=== PATIENT | female | born 1955 | race Caucasian/White ===

== ENCOUNTER 2017-08-27 15:42 | Emergency (ER) | payer MEDICARE, OTHER ==
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
[2017-08-27 16:49] LABS: Hematocrit 48.9 % (37.0-47.0); Hemoglobin 16.2 gm/dL (12.5-16.0); Mean Corpuscular Hemoglobin 32.1 pg (27-31); Mean Corpuscular Hgb Conc 33.1 g/dl (32-36); Mean Platelet Volume 8.9 fl (6.0-9.5); Neutrophil % 65.8 % (42-75.0); Platelet Count 191 K/mm3 (150-450); Red Blood Count 5.04 M/mm3 (4.2-5.4); Red Cell Distribution Width 14.5 % (11.5-14.0); White Blood Count 7.7 K/mm3 (4.0-10.5)
[2017-08-27 17:04] LABS: Albumin * 3.2 gm/dl (3.4-5.0); Anion Gap 11.7 mmol/L (6.8-13.8); BUN/Creatinine Ratio 19.3 (9.0-21.6); Bilirubin, Total 0.2 mg/dL (0.0-1.1); Ca. Corrected For Albumin 8.7 mg/dL (8.4-10.2); Calcium * 8.4 mg/dL (7.9-10.9); Carbon Dioxide 27.6 mmol/L (24-32.6); Potassium 3.3 mmol/L (3.4-4.6); Total Protein 7.3 gm/dL (6.2-8.2)
[2017-08-27 17:23] LABS: Urine Bilirubin 1 mg/dl (NEGATIVE); Urine Blood 250 /ul (NEGATIVE); Urine Ketone 5 mg/dL (NEGATIVE); Urine Nitrite Negative (NEGATIVE); Urine Protein 30 mg/dL (NEGATIVE); Urine Specific Gravity 1.025 SP.GR. (1.005-1.010); Urine Urobilinogen Normal (NORMAL)
[2017-08-27 17:36] LABS: Urine Appearance Cloudy; Urine Bacteria 1+; Urine Color Yellow; Urine WBC 0-5 /hpf (0-5)
[2017-08-27] MEDS ORDERED: CEFUROXIME AXETIL 500 MG TABLET PO ONE (18:32)
[2017-08-27] MEDS ORDERED: CEFUROXIME AXETIL 500 MG TABLET ONE (18:36)
[2017-08-27 19:56] VITALS: BP 153/71
== END 2017-08-27 20:15 ==
LOC: ER 15:42
DX: N30.00 Acute cystitis without hematuria (principal); E10.9 Type 1 diabetes mellitus without complications; Z79.4 Long term (current) use of insulin; Z87.440 Personal history of urinary (tract) infections; Z86.711 Personal history of pulmonary embolism; Z79.01 Long term (current) use of anticoagulants; I10 Essential (primary) hypertension; E78.5 Hyperlipidemia, unspecified; R56.9 Unspecified convulsions

== ENCOUNTER 2017-08-29 10:22 | Emergency (ER) | payer MEDICARE, OTHER ==
--- NOTE | 2017-08-29 11:07 | ERNOTE ---
ER Female HPI Date of Service: 08/29/17 Stated Complaint: BLEEDING Presenting Symptoms: vaginal bleeding Time Seen by Provider: 08/29/17 10:51 Source: patient Exam Limitations: no limitations Immunizations: IMMUNIZATION HX Immunizations Up to Date Yes History of Influenza Vaccine Yes Hx Pneumococcal Vaccination Yes Allergies/Adverse Reactions: Allergies No Known Allergies Allergy (Verified 08/29/17 10:41) Home Medications: HOME MEDICATIONS Atorvastatin Calcium [Lipitor] 40 mg PO HS 07/28/14 [Last Taken Unknown] Cyanocobalamin (Vitamin B-12) [B-12] 1,000 mcg PO DAILY 07/28/14 [Last Taken Unknown] Escitalopram Oxalate [Lexapro] 20 mg PO DAILY 07/28/14 [Last Taken Unknown] Furosemide [Lasix] 20 mg PO DAILY 07/28/14 [Last Taken Unknown] Insulin Glargine,Hum.rec.anlog [Lantus] 75 units SQ HS 07/28/14 [Last Taken Unknown] Insulin Regular, Human [Novolin R] 12 unit SC DAILY 07/28/14 [Last Taken Unknown ] Lisinopril [Zestril] 5 mg PO DAILY 07/28/14 [Last Taken Unknown] PHENobarbital [Phenobarbital] 32.4 mg PO DAILY 07/28/14 [Last Taken Unknown] PHENobarbital [Phenobarbital] 64.8 mg PO DAILY 07/28/14 [Last Taken Unknown] Phenytoin Sodium Extended [Dilantin] 100 mg PO BIDWM 07/28/14 [Last Taken Unknown] Sennosides [Senokot] 8.6 mg PO DAILY 07/28/14 [Last Taken Unknown] Warfarin Sodium [Coumadin] 3 mg PO DAILY 07/28/14 [Last Taken Unknown] clonazePAM [Klonopin] 3 mg PO DAILY 07/28/14 [Last Taken Unknown] Loratadine 10 mg PO DAILY 08/27/17 [Last Taken Unknown] Warfarin Sodium [Jantoven] 0.5 mg PO MOTH 08/27/17 [Last Taken Unknown] - History of Present Illness Narrative: Pt. comes in with c/o B pelvic pain and vaginal bleeding with clots for a week. Caregivers state that the bleeding has worsened over the past three days and that pt. has been recently treated for UTI two days ago and denies any improvement with treatment. Pt. denies any SOB, CP, NVD, fever, or recent injury Review of Systems - Review of Systems Constitutional: Present: recent illness, weakness, fatigue. Absent: fever, chills, malaise EYE: Present: no symptoms reported ENT: Present: no symptoms reported Respiratory: Present: no symptoms reported. Absent: shortness of breath, cough , wheezing Cardiology: Present: no symptoms reported. Absent: chest pain, palpitations, edema Gastrointestinal/Abdominal: Present: abdominal pain - pelvic. Absent: nausea, vomiting, diarrhea Genitourinary: Present: pain - pelvic, hematuria, discharge - blood. Absent: frequency, dysuria, decreased urinary output Musculoskeletal: Present: no symptoms reported. Absent: back pain, joint pain Skin: Present: no symptoms reported. Absent: rash, change in color Neurological: Present: no symptoms reported. Absent: headache, dizziness/light- headedness, numbness, tingling All Other Systems: All systems neg except as marked - Patient's Past Medical History Patient History - Medical: Anxiety, Diabetes Type 1, Dementia, Depression, GERD , Obesity, Seizures, UTI'S Patient History - Cardiac/Respiratory: Hypertension, Hyperlipidemia, Pulmonary Embolism Patient History - Cancer: No Hx of Cancer Patient History - Other: None LMP (females 10-50): post men - Social History Living Situations: detention Psych History: Hx of Anxiety, Hx of Depression Smoking Status: Never smoker Alcohol Use: none Drug Use: none - Immunizations Immunizations Up to Date: Yes Hx Pneumococcal Vaccination: Yes History of Influenza Vaccine: Yes Physical Exam - Physical Exam General Appearance: Present: wd/wn, alert, no apparent distress Head Exam: Present: normal inspection, no evidence of injury Eye Exam: Normal inspection: bilateral, PERRL: bilateral, EOMI: bilateral Ears, Nose, Throat: Present: normal ENT inspection, normal pharynx Neck: Present: normal inspection, nontender. Absent: lymphadenopathy (R), lymphadenopathy (L) Respiratory: Present: no respiratory distress, normal breath sounds, no accessory muscle use, chest nontender, lungs clear Cardiovascular/Chest: Present: regular rate, rhythm, no murmur, normal peripheral pulses Gastrointestinal/Abdominal: Present: normal bowel sounds, nondistended, soft, no organomegaly, tenderness - B pelvic. Absent: rebound Pelvic Exam: Present: active bleeding, tender adnexa, tender uterus. Absent: discharge, lesions, cervical motion tendernes Back Exam: Present: normal inspection, normal range of motion, no CVA tenderness , no vertebral tenderness Extremity Exam: Present: normal inspection, non-tender, normal range of motion, no edema Neurological Exam: Present: alert, oriented, normal mood/affect, no motor/ sensory deficits Skin Exam: Present: warm/dry, pallor ED Progress - Date and Time Seen: Date and Time: 08/29/17 14:[address] Ga and she recommends transfer of pt. to [facility] for further treatment or evaluation of possible ovarian CA uterine hemorrhage. 08/29/17 14:[address] Murray at [facility] and he accept pt. for transfer at this time. - Results and Orders Patient's Lab Results:: I have reviewed the patient's lab results. - Vital Signs Patient's Vital Signs:: I have reviewed the patient's vital signs. Vital Signs: Vital Signs 08/29/17 10:36 Temperature 36.5 C Pulse Rate 80 Respiratory 17 Rate Blood Pressure 122/58 O2 Sat by Pulse 97 Oximetry - CT/Ultrasound CT/Ultrasound Narrative: US Pelvic Complete * Transabdominal Pelvic Ultrasound: Uterus: 8.8 cm in length by 3.6 cm AP by 5.8 cm transverse. Anteverted. No focal uterine mass. Endometrial stripe measurement is 13.3 mm. Right ovary: Not directly visualized. No obvious right adnexal mass. Left ovary: 5.0 x 5.2 x 2.5 cm. There may be a 4.7 x 4.8 x 2.2 cm cyst, with a potential solid component. No free fluid in the cul-de-sac. Color-flow not definitively seen within the left ovary by transabdominal technique. Transvaginal imaging was not performed by the technologist to patient status. IMPRESSION: 1. Right ovary not directly visualized but no definite signs of right adnexal mass. 2. Left ovary enlargement, with a complicated cyst like lesion with solid component identified. Could represent neoplasm, either benign or malignant. 3. Abnormally thickened appearance of the endometrial stripe, with the underlying assumption that the patient has likely postmenopausal, with vaginal bleeding. Differential diagnosis includes endometrial hyperplasia versus polyp versus carcinoma. Also consider distended endometrial canal due to blood products or submucosal fibroid. Consider further evaluation by tissue sampling. 4. When possible, consider transvaginal imaging. Ordering provider Kaylah Lee was informed regarding the above results via telephone on 08/29/2017 1:33 PM. Electronically signed by José Naranjo M.D.. - Progress/Reassessment Chief Complaint: Genitourinary Problem Progress:: Unchanged Departure Clinical Impression: Uterine hemorrhage, Ovarian neoplasm Anticoagulant overdosage Qualifiers: Encounter type: initial encounter Injury intent: accidental or unintentional Qualified Code(s): T45.511A - Poisoning by anticoagulants, accidental ( unintentional), initial encounter - Departure Disposition: [facility] Condition: Serious
[2017-08-29 11:08] LABS: Hematocrit 46.6 % (37.0-47.0); Hemoglobin 15.8 gm/dL (12.5-16.0); Mean Cell Volume 95.5 fl (78-100); Mean Corpuscular Hemoglobin 32.4 pg (27-31); Mean Corpuscular Hgb Conc 33.9 g/dl (32-36); Mean Platelet Volume 8.7 fl (6.0-9.5); Neutrophil # 5.3 K/mm3 (1.3-6.0); Neutrophil % 69.1 % (42-75.0); Platelet Count 193 K/mm3 (150-450); Red Blood Count 4.88 M/mm3 (4.2-5.4); Red Cell Distribution Width 14.4 % (11.5-14.0); White Blood Count 7.7 K/mm3 (4.0-10.5)
[2017-08-29] MEDS ORDERED: NORMAL SALINE 500 ML IV ONE (11:10)
[2017-08-29 11:23] LABS: Albumin * 3.2 gm/dl (3.4-5.0); Anion Gap 10.1 mmol/L (6.8-13.8); BUN/Creatinine Ratio 21.5 (9.0-21.6); Bilirubin, Total 0.2 mg/dL (0.0-1.1); Ca. Corrected For Albumin 8.5 mg/dL (8.4-10.2); Calcium * 8.2 mg/dL (7.9-10.9); Carbon Dioxide 28.3 mmol/L (24-32.6); Potassium 3.4 mmol/L (3.4-4.6); Total Protein 7.2 gm/dL (6.2-8.2)
[2017-08-29 11:46] LABS: INR Greater than 9.60 INR (0.90-1.10)
[2017-08-29] MEDS ORDERED: PHYTONADIONE (VIT K1) 10 MG/ML AMPUL SC ONE (11:58)
[2017-08-29] MEDS ORDERED: PHYTONADIONE (VIT K1) 10 MG/ML AMPUL ONE (12:25)
[2017-08-29 15:47] VITALS: BP 170/71
== END 2017-08-29 16:00 | disposition short-term general hospital (02) ==
LOC: ER 10:22
DX: N93.9 Abnormal uterine and vaginal bleeding, unspecified (principal); D39.12 Neoplasm of uncertain behavior of left ovary; T45.511A Poisoning by anticoagulants, accidental (unintentional), initial encounter; Z87.440 Personal history of urinary (tract) infections; Z86.711 Personal history of pulmonary embolism; Z79.01 Long term (current) use of anticoagulants

== ENCOUNTER 2017-10-01 16:49 | Inpatient (IN) | payer MEDICARE, OTHER ==
--- NOTE | 2017-10-01 17:05 | ERNOTE ---
<Mindy Ashton - Last Filed: 10/01/17 20:04> Syncope ER HPI Stated Complaint: DIABETIC PROBLEMS Time Seen by Provider: 10/01/17 16:50 Source: EMS, [facility] Exam Limitations: clinical condition Immunizations: IMMUNIZATION HX Immunizations Up to Date Yes History of Influenza Vaccine Yes Hx Pneumococcal Vaccination Yes Allergies/Adverse Reactions: Allergies No Known Allergies Allergy (Verified 08/29/17 10:41) Home Medications: HOME MEDICATIONS Atorvastatin Calcium [Lipitor] 40 mg PO HS 07/28/14 [Last Taken Unknown] Cyanocobalamin (Vitamin B-12) [B-12] 1,000 mcg PO DAILY 07/28/14 [Last Taken Unknown] Escitalopram Oxalate [Lexapro] 20 mg PO DAILY 07/28/14 [Last Taken Unknown] Furosemide [Lasix] 20 mg PO DAILY 07/28/14 [Last Taken Unknown] Insulin Glargine,Hum.rec.anlog [Lantus] 75 units SQ HS 07/28/14 [Last Taken Unknown] Insulin Regular, Human [Novolin R] 12 unit SC DAILY 07/28/14 [Last Taken Unknown ] Lisinopril [Zestril] 5 mg PO DAILY 07/28/14 [Last Taken Unknown] Phenytoin Sodium Extended [Dilantin] 100 mg PO BIDWM 07/28/14 [Last Taken Unknown] Sennosides [Senokot] 8.6 mg PO DAILY 07/28/14 [Last Taken Unknown] clonazePAM [Klonopin] 2 mg PO DAILY 07/28/14 [Last Taken Unknown] Loratadine 10 mg PO DAILY 08/27/17 [Last Taken Unknown] Enoxaparin Sodium [Lovenox] 120 mg SQ BID 10/01/17 [Last Taken Unknown] HYDROcodone/ACETAMINOPHEN [[place] 5-325] 1 tab PO Q4H PRN 10/01/17 [Last Taken Unknown] Megestrol Acetate [Megace] 40 mg PO BID 10/01/17 [Last Taken Unknown] Penicillin V Potassium 500 mg PO TID 10/01/17 [Last Taken Unknown] - History of Present Illness Narrative: Patient is coming from the care center for a syncopal episode. Per chart patient has dementia with behavior disturbances and mental challenges as well as seizure disorder. [facility] she was being transferred when she became limp and unresponsive for about 15 seconds, no definite seizure activity observed. She was conversing in the ambulance but apparently only talks 'when she wants to' She is currently being treated for a UTI with penicillin Prior Episodes: Present: single episode today Symptoms prior to episode: Present: unknown Activity at time of episode: Present: standing Character of event: Present: brief (seconds), became unresponsive. Absent: seizure activity observed Location of Injury: Present: none Current Symptoms: Present: back to normal - apparently back to her baseline Prior Treament: Denies: recently seen Review of Systems - Narrative Narrative: unable to obtain details du to patients condition - Review of Systems Constitutional: Present: recent illness Cardiology: Absent: chest pain Neurological: Present: See HPI - Patient's Past Medical History Patient History - Medical: Anxiety, Diabetes Type 1, Dementia, Depression, GERD , Obesity, Seizures, UTI'S Patient History - Cardiac/Respiratory: Hypertension, Hyperlipidemia, Pulmonary Embolism Patient History - Cancer: No Hx of Cancer - ?? Patient History - Other: None - Social History Psych History: Hx of Anxiety, Hx of Depression - Immunizations Immunizations Up to Date: Yes Hx Pneumococcal Vaccination: Yes History of Influenza Vaccine: Yes Physical Exam - Physical Exam General Appearance: Present: wd/wn, no apparent distress, obese, other - opens eyes spontanously, refuses to answer questions Eye Exam: Normal inspection: bilateral, PERRL: bilateral Ears, Nose, Throat: Present: normal pharynx Respiratory: Present: no respiratory distress, no accessory muscle use, lungs clear, decreased breath sounds Cardiovascular/Chest: Present: regular rate, rhythm, no murmur Gastrointestinal/Abdominal: Present: nondistended, soft Extremity Exam: Present: no edema Neurological Exam: Present: no motor/sensory deficits, other - follows some commands squeezes hand keeps hand stretched out in front of her, equal smile, unable to test orientation, per E[facility] ans staff that has woeked with her before this behavior is normal for her Skin Exam: Present: normal color, warm/dry ED Progress - Results and Orders Patient's Lab Results:: I have reviewed the patient's lab results. - Vital Signs Patient's Vital Signs:: I have reviewed the patient's vital signs. - EKG EKG: NSR, nonspecific ST T wave changes, unchanged from 05/2010, other - noacute changes EKG read: Interp. by me - Progress/Reassessment Progress Note-Subjective: 10/01/17 19:48 reviewed chart from [facility], patient was discharged form there on 09/18, had extensive PE treated wit lovenox D&C showed grade endometrial neoplasm, treated medically as patient is poor surgical candidate, Hb 09/21 15.0 10/01/17 20:00 patients sister in law at bedside, report that patient vomited once earlier, family is concerned about bowel obstruction - Transfer of Care Physician Sign Out: Mindy Ashton Receiving Physician: Rick Yoder Pending Results: X-ray results Expected Disposition: Admit Departure Clinical Impression: Endometrial neoplasm Anemia Qualifiers: Anemia type: unspecified type Qualified Code(s): D64.9 - Anemia, unspecified Syncope Qualifiers: Syncope type: unspecified Qualified Code(s): R55 - Syncope and collapse - Departure Disposition: [facility] Condition: Stable <Rick Yoder - Last Filed: 10/01/17 22:31> Syncope ER HPI Immunizations: IMMUNIZATION HX Immunizations Up to Date Yes History of Influenza Vaccine Yes Hx Pneumococcal Vaccination Yes ED Progress - Results and Orders Patient's Lab Results:: I have reviewed the patient's lab results. Results and Orders: Laboratory Tests 10/01/17 10/01/17 10/01/17 17:13 19:05 19:05 WBC 8.3 Hgb 7.9 L* D Hct 24.2 L Plt Count 293 VBG pH Sodium 142 Potassium 3.3 L Chloride 105 Carbon Dioxide 29.7 BUN 18 Creatinine 0.75 Random Glucose 282 H Lactic Acid, Venous Calcium 8.1 Total Bilirubin 0.6 AST 29 ALT 16 L Alkaline Phosphatase 137 Troponin I 0.027 Total Protein 6.1 L Albumin 2.4 L Urine Color Dark yellow Urine Appearance Clear Urine pH 5.[address] >=1.030 Urine Protein 30 H Urine Glucose (UA) 100 H Urine Ketones 50 Urine Blood Negative Urine Nitrate Negative Urine Bilirubin 1 H Urine Ictotest Positive H Prot Sulfosalicylic Acd Negative Urine Urobilinogen Normal Ur Leukocyte Esterase Negative Urine RBC None seen Urine WBC 0-5 Ur Epithelial Cells None seen Urine Bacteria 2+ H Urine Mucus Many - 3+ H Urine Culture Comments Culture to follow Serum Ketones Positive - 10mg/dl H 10/01/17 10/01/17 19:05 19:05 WBC Hgb Hct Plt Count VBG pH 7.450 H Sodium Potassium Chloride Carbon Dioxide BUN Creatinine Random Glucose Lactic Acid, Venous 0.8 Calcium Total Bilirubin AST ALT Alkaline Phosphatase Troponin I Total Protein Albumin Urine Color Urine Appearance Urine pH Ur Specific [address] Urine Protein Urine Glucose (UA) Urine Ketones Urine Blood Urine Nitrate Urine Bilirubin Urine Ictotest Prot Sulfosalicylic Acd Urine Urobilinogen Ur Leukocyte Esterase Urine RBC Urine WBC Ur Epithelial Cells Urine Bacteria Urine Mucus Urine Culture Comments Serum Ketones - Vital Signs Patient's Vital Signs:: I have reviewed the patient's vital signs. Vital Signs: Vital Signs 10/01/17 10/01/17 10/01/17 16:54 17:36 18:28 Temperature 36.3 C L Pulse Rate 88 82 80 Respiratory 19 18 Rate Blood Pressure 125/31 112/43 O2 Sat by Pulse 94 97 Oximetry 10/01/17 10/01/17 10/01/17 18:37 19:10 19:48 Temperature Pulse Rate 80 84 81 Respiratory 14 18 18 Rate Blood Pressure 127/40 120/45 125/45 O2 Sat by Pulse 97 97 94 Oximetry 10/01/17 10/01/17 20:29 20:56 Temperature Pulse Rate 80 81 Respiratory 16 16 Rate Blood Pressure 116/39 116/35 O2 Sat by Pulse 98 97 Oximetry - X-Ray X-Ray #1 X-Ray: abdomen Interpretation: Interp. by me X-ray Comments: moderated stool retention throughout the abdomen, no evidence for obstruction. Gas present in the rectum - Progress/Reassessment Progress:: Unchanged Progress Note-Subjective: 10/01/17 21:17 Discussed findings with the patient and family. They agree with admission. Pt non-verbal while I am in the room. Spoke with Rita Grubbs [facility] Hospitalist she agrees with obs. admit. She declined to have pt transfused until her Hgb is below 7.0.
[2017-10-01] MEDS ORDERED: NORMAL SALINE 1,000 ML IV ONE (17:14)
[2017-10-01 17:18] LABS: Urine Bilirubin 1 mg/dl (NEGATIVE); Urine Blood Negative /ul (NEGATIVE); Urine Ketone 50 mg/dL (NEGATIVE); Urine Nitrite Negative (NEGATIVE); Urine Protein 30 mg/dL (NEGATIVE); Urine Specific Gravity >=1.030 SP.GR. (1.005-1.010); Urine Urobilinogen Normal (NORMAL); Urine pH 5.5 pH (5.0-7.0)
[2017-10-01 18:19] LABS: Urine Appearance Clear; Urine Bacteria 2+; Urine Color Dark Yellow; Urine RBC None Seen /hpf (0-5); Urine WBC 0-5 /hpf (0-5)
[2017-10-01 18:20] LABS: Urine Mucus Many - 3+
[2017-10-01 19:14] LABS: Hematocrit 24.2 % (37.0-47.0); Mean Cell Volume 101.7 fl (78-100); Mean Corpuscular Hemoglobin 33.2 pg (27-31); Mean Corpuscular Hgb Conc 32.6 g/dl (32-36); Mean Platelet Volume 9.4 fl (6.0-9.5); NRBC# 0.1 k/mm3 (0-1); Neutrophil # 5.8 K/mm3 (1.3-6.0); Platelet Count 293 K/mm3 (150-450); Red Blood Count 2.38 M/mm3 (4.2-5.4); Red Cell Distribution Width 16.3 % (11.5-14.0); White Blood Count 8.3 K/mm3 (4.0-10.5)
[2017-10-01 19:17] LABS: Hemoglobin 7.9 gm/dL (12.5-16.0)
[2017-10-01 19:36] LABS: ALT 16 U/L (19-67); AST 29 U/L (0-48); Albumin * 2.4 gm/dl (3.4-5.0); Alkaline Phosphatase * 137 U/L (50-170); Anion Gap 10.6 mmol/L (6.8-13.8); Bilirubin, Total 0.6 mg/dL (0.0-1.1); Blood Urea Nitrogen 18 mg/dL (3-23); Ca. Corrected For Albumin 9.1 mg/dL (8.4-10.2); Calcium * 8.1 mg/dL (7.9-10.9); Carbon Dioxide 29.7 mmol/L (24-32.6); Chloride 105 mmol/L (97-106); Glucose * 282 mg/dL (70-110); Potassium 3.3 mmol/L (3.4-4.6); Sodium 142 mmol/L (132-142); Total Protein 6.1 gm/dL (6.2-8.2); Troponin I 0.027 ng/ml (0.00-0.10)
--- NOTE | 2017-10-01 21:55 | HP ---
Chief Complaint - Chief Complaint Date of Service: 10/01/17 Time of Service: 21:53 Chief Complaint: 'Syncope, Anemia'. Source of HPI- Pt; unobtainable as pt is non- verbal, ERP report/notes, pt's EMR. History of Present Illness: Ms. Osman is a 61-yr-old [place] pt of Dr. Angelo Aponte with a PMH of:Anxiety , Depression, DM I, GERD, HTN, HLD, Pulmonary Embolism and Mental Retardation. Pt is non-verbal (reported as intentional at times) and has history of Traumatic Brain Injury as a child at age 2. She is a assisted care resident at [facility] and has been living there for the past 10 yrs. Pt was brought to the ED tonight due to a witnessed episode of being unresponsive and L[facility] for about 15 seconds during transfers with a fadi lift. At the ED, laboratory studies showed she had H & H of: 24.2/7.9, K -3.3. UA showed UTI, but records show she was being treated at the [facility] with penicillin. No signs of active bleeding from the [facility] and while at the ED. She had vomited en,route to the hospital. An Abdominal X-ray obtained at the ED showed; multiple air filled loops of small and large bowel with mild dilatation of small bowel loops and the findings were concerning for PSBO. No other imaging studies pending or completed. Of-note pt underwent D&C due to post menopausal vaginal bleeding on 09/18/17 at the [facility]. During the surgical procedure, she became hypoxic and continued to be , despite intubation & 100% of Oxygen.She remained hypoxic in PACU and further work-up of Hypoxia with a CTA showed saddle embolus with emboli involving all the the 5 lobes of the Lung and evidence of RT heart strain. She received treatment with heparin and on discharge (09/21), she was switched to Lovenox SQ b.i.d. The Coumadin, which she had been taking previously since May 2010 due to saddle Embolus was discontinued. Her pathology results from the D & C ended up coming back positive for Stage 1 Endometrial Carcinoma. Options for treatment included hysterectomy, however, with her history of pulmonary embolism , oxygen requirement and comorbidities, she was deemed a poor surgical candidate. The systemic hormonal therapy was also determined not possible due to its increased side effects of blood clots. She was instead started on Megace 80mg bid. Due to the findings on the Abdominal X-ray, and reports of vomiting while enroute to the hospital and upon admission on to the floor, she will be admitted inpatient due to clinical signs of Small bowel Obstruction and also due to low h/h. - Patient's Past Medical History Patient History - Medical: Anxiety, Diabetes Type 1, Dementia, Depression, GERD , Obesity, Seizures, UTI'S Patient History - Cardiac/Respiratory: Hypertension, Hyperlipidemia, Pulmonary Embolism Patient History - Cancer: No Hx of Cancer - ?? Patient History - Other: None LMP (females 10-50): post - Family History Mother Family History - Medical: , History Unknown Father Family History - Medical: Family History - Cardiac/Respiratory: Coronary Heart Disease, Myocardial Infarction - Social History Living Situations: [facility]pc Psych History: Hx of Anxiety, Hx of Depression Smoking Status: Never smoker Alcohol Use: none Drug Use: none - Immunizations Immunizations Up to Date: Yes Hx Pneumococcal Vaccination: Yes History of Influenza Vaccine: Yes Review Of Systems (GEN) - Review of Systems Additional Comments: ROS unobtainable due to AMS. Allergies/Adverse Reactions: Allergies Allergy/AdvReac Type Severity Reaction Status Date / Time No Known Allergies Allergy Verified 08/29/17 10:41 Home Medications: HOME MEDICATIONS Atorvastatin Calcium [Lipitor] 40 mg PO HS 07/28/14 [Last Taken 09/30/17 19:00] Cyanocobalamin (Vitamin B-12) [B-12] 1,000 mcg PO DAILY 07/28/14 [Last Taken 05/12 07:00] Escitalopram Oxalate [Lexapro] 20 mg PO DAILY 07/28/14 [Last Taken 10/01/17 07: 00] Furosemide [Lasix] 20 mg PO DAILY 07/28/14 [Last Taken 10/01/17 07:00] Insulin Glargine,Hum.rec.anlog [Lantus] 75 units SQ HS 07/28/14 [Last Taken 04/11 19:00] Insulin Regular, Human [Novolin R] 12 unit SC DAILY 07/28/14 [Last Taken 07:00] Lisinopril [Zestril] 5 mg PO DAILY 07/28/14 [Last Taken 10/01/17 07:00] Phenytoin Sodium Extended [Dilantin] 200 mg PO BIDWM 07/28/14 [Last Taken 07:00] Sennosides [Senokot] 17.2 mg PO DAILY 07/28/14 [Last Taken 09/30/17 19:00] clonazePAM [Klonopin] 2 mg PO DAILY 07/28/14 [Last Taken 10/01/17 15:00] Loratadine 10 mg PO DAILY 08/27/17 [Last Taken 10/01/17 07:00] Acetaminophen 650 mg PO Q8H PRN 10/01/17 [Last Taken Unknown] Artificial Tears 1 drop EACHEYE Q4H 10/01/17 [Last Taken 10/01/17 15:00] Docusate Sodium 100 mg PO BID PRN 10/01/17 [Last Taken Unknown] Enoxaparin Sodium [Lovenox] 120 mg SQ BID 10/01/17 [Last Taken 10/01/17 07:00] HYDROcodone/ACETAMINOPHEN [[place] 5-325] 1 tab PO Q4H PRN 10/01/17 [Last Taken 19:58] Mapap 650 mg PO DAILY 10/01/17 [Last Taken 10/01/17 11:00] Megestrol Acetate [Megace] 40 mg PO BID 10/01/17 [Last Taken 10/01/17 07:00] Milk Of Magnesia 30 ml PO DAILY PRN 10/01/17 [Last Taken Unknown] Nystatin 1 each MC BID PRN 10/01/17 [Last Taken Unknown] Ondansetron 4 mg PO Q8H PRN 10/01/17 [Last Taken Unknown] PHENobarbital 3 cap PO DAILY 10/01/17 [Last Taken 10/01/17 07:00] Penicillin V Potassium 500 mg PO QID 10/01/17 [Last Taken 10/01/17 15:00] Exam - Exam Vital Signs: Vital Signs - Last Taken Temp 36.4 C L 10/01/17 21:17 Pulse 79 10/01/17 21:17 Resp 15 10/01/17 21:17 BP 119/41 10/01/17 21:17 Pulse Ox 97 10/01/17 21:17 Constitutional: Present: Alert, No distress, Other - Non- verbal. ENT Exam: Present: normal ENT inspection, dry mucous membranes Eye Exam: bilateral eye: normal inspection, PERRL Neck: Present: normal inspection Back Exam: Present: normal inspection Respiratory: Present: lungs clear, No rales, No wheezing Cardiovascular/Chest: Present: normal peripheral pulses, regular rate, rhythm, no edema Abdomen: Present: nontender, obese /Rectal: Present: Exam deferred Extremity: Present: no pedal edema, no calf tenderness Skin Exam: Present: warm/dry, cool/dry Lymphatic: Present: no adenopathy Neurologic: Present: alert Appearance: Present: impaired insight Eye contact: Present: good eye contact. Absent: normal speech Thoughts: Present: no apparent hallucination Diagnostic Studies: Laboratory Results WBC 8.3 K/mm3 (4.0-10.5) 10/01/17 19:05 RBC 2.38 M/mm3 (4.2-5.4) L 10/01/17 19:05 Hgb 7.9 gm/dL (12.5-16.0) L* D 10/01/17 19:05 Hct 24.2 % (37.0-47.0) L 10/01/17 19:05 MCV 101.7 fl (78-100) H 10/01/17 19:05 MCH 33.2 pg (27-31) H 10/01/17 19:05 MCHC 32.6 g/dl (32-36) 10/01/17 19:05 RDW 16.3 % (11.5-14.0) H 10/01/17 19:05 Plt Count 293 K/mm3 (150-450) 10/01/17 19:05 MPV 9.4 fl (6.0-9.5) 10/01/17 19:05 Immature Gran % (Auto) 1.00 % (0.001-0.429) H 10/01/17 19:05 Immature Gran # (Auto) 0.08 K/mm3 (0.000-0.0310) H 10/01/17 19:05 Neutrophils % 70.0 % (42-75.0) 10/01/17 19:05 Lymphocytes % 15.9 % (20-51) L 10/01/17 19:05 Monocytes % 11.6 % (0.0-9) H 10/01/17 19:05 Eosinophils % 1.1 % (0.0-3.0) 10/01/17 19:05 Basophils % 0.4 % (0.0-1.0) 10/01/17 19:05 Nucleated RBC % 0.1 k/mm3 (0-1) 10/01/17 19:05 Neutrophils # 5.8 K/mm3 (1.3-6.0) 10/01/17 19:05 Lymphocytes # 1.3 k/mm3 (1.5-3.5) L 10/01/17 19:05 Monocytes # 1.0 k/mm3 (0.0-1.0) 10/01/17 19:05 Eosinophils # 0.1 k/mm3 (0.0-0.7) 10/01/17 19:05 Absolute Basophils 0.0 k/mm3 (0.0-0.1) 10/01/17 19:05 PTT ([place]) 43.9 Seconds (24-32) H 10/01/17 19:05 VBG pH 7.450 (7.32-7.43) H 10/01/17 19:05 Sodium 142 mmol/L (132-142) 10/01/17 19:05 Plasma Sodium 145 mmol/L (130-142) H 10/01/17 19:05 Potassium 3.3 mmol/L (3.4-4.6) L 10/01/17 19:05 Chloride 105 mmol/L (97-106) 10/01/17 19:05 Carbon Dioxide 29.7 mmol/L (24-32.6) 10/01/17 19:05 Anion Gap 10.6 mmol/L (6.8-13.8) 10/01/17 19:05 BUN 18 mg/dL (3-23) 10/01/17 19:05 Creatinine 0.75 mg/dL (0.4-1.4) 10/01/17 19:05 Est GFR (Non-Af Amer) 83 mL/min (60-130) D 10/01/17 19:05 BUN/Creatinine Ratio 24.0 (9.0-21.6) H 10/01/17 19:05 Random Glucose 282 mg/dL (70-110) H 10/01/17 19:05 Lactic Acid, Venous 0.8 mmol/L (0.4-1.9) 10/01/17 19:05 Calcium 8.1 mg/dL (7.9-10.9) 10/01/17 19:05 Calcium Adj for Albumin 9.1 mg/dL (8.4-10.2) 10/01/17 19:05 Total Bilirubin 0.6 mg/dL (0.0-1.1) 10/01/17 19:05 AST 29 U/L (0-48) 10/01/17 19:05 ALT 16 U/L (19-67) L 10/01/17 19:05 Alkaline Phosphatase 137 U/L (50-170) 10/01/17 19:05 Troponin I 0.027 ng/ml (0.00-0.10) 10/01/17 19:05 Total Protein 6.1 gm/dL (6.2-8.2) L 10/01/17 19:05 Albumin 2.4 gm/dl (3.4-5.0) L 10/01/17 19:05 Urine Color Dark yellow 10/01/17 17:13 Urine Appearance Clear 10/01/17 17:13 Urine pH 5.5 pH (5.0-7.0) 10/01/17 17:13 Ur Specific [place] >=1.030 SP.GR. (1.005-1.010) 10/01/17 17:13 Urine Protein 30 mg/dL (NEGATIVE) H 10/01/17 17:13 Urine Glucose (UA) 100 mg/dL (NEGATIVE) H 10/01/17 17:13 Urine Ketones 50 mg/dL (NEGATIVE) 10/01/17 17:13 Urine Blood Negative /ul (NEGATIVE) 10/01/17 17:13 Urine Nitrate Negative (NEGATIVE) 10/01/17 17:13 Urine Bilirubin 1 mg/dl (NEGATIVE) H 10/01/17 17:13 Urine Ictotest Positive (NEGATIVE) H 10/01/17 17:13 Prot Sulfosalicylic Acd Negative mg/dL (0) 10/01/17 17:13 Urine Urobilinogen Normal EU/dl (NORMAL) 10/01/17 17:13 Ur Leukocyte Esterase Negative /ul (NEGATIVE) 10/01/17 17:13 Urine RBC None seen /hpf (0-5) 10/01/17 17:13 Urine WBC 0-5 /hpf (0-5) 10/01/17 17:13 Ur Epithelial Cells None seen /hpf (0-5) 10/01/17 17:13 Urine Bacteria 2+ (NONE) H 10/01/17 17:13 Urine Mucus Many - 3+ (NONE) H 10/01/17 17:13 Urine Culture Comments Culture to follow 10/01/17 17:13 Serum Ketones Positive - 10mg/dl (NEGATIVE) H 10/01/17 19:05 Blood Type A Positive 10/01/17 19:05 Antibody Screen Negative 10/01/17 19:05 Crossmatch See Detail 10/01/17 19:05 Assessment/Plan - Assessment/Plan (1) Partial small bowel obstruction Assessment: Pt has had two episodes of vomiting, findings on the Abdominal X-ray were concerning for SBO. Preliminary CT of the Abdomen show No bowel obstruction, howver due to high suspicion of PSBO; will keep her NPO tonighht till am, Advance diet slowly to clears, Provide antiemetics prn. Problem: Acute (2) Anemia Assessment: Pt is normally on base line. Was on blood Lovenox sq bid. Will hold off any anticoagulation. Check gastric occult and occult blood stool. Monitor serial H& H every 6 hours. Transfuse if Hgb < 7 or if active signs of bleeding or hemodynamic instability. Laboratory Tests 08/27/17 08/29/17 09/26/17 16:40 11:00 12:10 Hgb 16.2 H 15.8 10.4 L 10/01/17 10/02/17 19:05 00:35 Hgb 7.9 L* D 8.1 L Problem: Acute (3) Constipation Assessment: Abdominal X-ray finding- stool throughout the colon and she has vomited twice. Will give stimulant laxatives with mag citrate,Senna and Dulcolax MA . Problem: Acute (4) Pulmonary emboli Assessment: Had Saddle Emlobuls in 06/08/10 and was started on Coumadin. She had another saddle Embolus again with multiple pulmonary embolism on 09/18/17. Her Coumadin was discontinued. She was on anticoagulation with Lovenox sc bid and she presented with hgb of 7.9 on 10/01/17. Her baseline is usually in the 13-15 range. Will hold off any anticoagulation. Will let PCP discuss with the pt's POA about bleeding risks with lovenox AND risks of holding anticoagulation given her known history of pulmonary embolism and saddle embolus. Problem: Chronic (5) UTI (urinary tract infection) Assessment: was receiving [facility] Continue with Oral Penicillin K. Problem: Acute (6) Endometrial neoplasm Assessment: Not deemed a surgical candidate for hysterectomy and systemic hormonal therapy according to the Gyne/ Onc. at the [facility]- On Megase Problem: Chronic (7) HTN (hypertension) Assessment: Stable- Lisinopril. Problem: Chronic Qualifiers: Hypertension type: essential hypertension Qualified Code(s): I10 - Essential (primary) hypertension (8) Diabetes type 1, controlled Assessment: Accuchecks ACHS, Continue Lantus & meal time. Problem: Chronic
[2017-10-02 00:39] LABS: Hematocrit 24.9 % (37.0-47.0); Hemoglobin 8.1 gm/dL (12.5-16.0)
[2017-10-02] MEDS ORDERED: NORMAL SALINE 1,000 ML IV PRN (01:10)
[2017-10-02 01:15] LABS: Prothrombin Time (Patient) 14.5 Seconds (9.0-11.0)
[2017-10-02 01:19] LABS: INR 1.44 INR (0.90-1.10)
[2017-10-02] MEDS ORDERED: ONDANSETRON HCL/PF 2 MG/ML VIAL IV PRN (01:20)
[2017-10-02] MEDS ORDERED: BISACODYL 10 MG SUPP.RECT RC ONE (01:28)
[2017-10-02] MEDS ORDERED: MAGNESIUM CITRATE 300 ML BTL PO ONE (01:51)
[2017-10-02] MEDS: POLYVINYL ALCOHOL 150 DROP BTL EACHEYE SCH ×6 (02:08→21:06)
[2017-10-02] MEDS: SENNOSIDES 8.6 MG TABLET PO SCH ×2 (02:16→21:05)
[2017-10-02] MEDS ORDERED: HYDROcodone/ACETAMINOPHEN 1 EACH TABLET PO PRN (02:35)
[2017-10-02] MEDS ORDERED: DOCUSATE SODIUM 100 MG CAPSULE PO PRN (02:45)
[2017-10-02] MEDS ORDERED: MAGNESIUM HYDROXIDE 30 ML UDC PO PRN (02:48)
[2017-10-02] MEDS ORDERED: ACETAMINOPHEN 325 MG TABLET PO PRN (02:51)
[2017-10-02] MEDS ORDERED: NYSTATIN 15 APPL BTL TP PRN (03:00)
[2017-10-02] MEDS: PANTOPRAZOLE SODIUM 40 MG in NORMAL SALINE 100 ML IV SCH ×2 (03:03→14:56)
[2017-10-02 06:15] LABS: Mean Cell Volume 101.8 fl (78-100); Mean Corpuscular Hemoglobin 33.3 pg (27-31); Mean Corpuscular Hgb Conc 32.8 g/dl (32-36); Mean Platelet Volume 8.5 fl (6.0-9.5); NRBC# 0.1 k/mm3 (0-1); Neutrophil # 4.5 K/mm3 (1.3-6.0); Neutrophil % 71.5 % (42-75.0); Platelet Count 269 K/mm3 (150-450); Red Blood Count 2.25 M/mm3 (4.2-5.4); Red Cell Distribution Width 16.3 % (11.5-14.0); White Blood Count 6.3 K/mm3 (4.0-10.5)
[2017-10-02 06:21] LABS: Hematocrit 22.9 % (37.0-47.0); Hemoglobin 7.5 gm/dL (12.5-16.0)
[2017-10-02 06:24] LABS: Anion Gap 11.7 mmol/L (6.8-13.8); BUN/Creatinine Ratio 17.9 (9.0-21.6); Calcium * 7.9 mg/dL (7.9-10.9); Estimated Creat Clear 84.7; Potassium 3.7 mmol/L (3.4-4.6)
--- NOTE | 2017-10-02 08:10 | PN ---
Subjective - Date and Time Seen Date: 10/02/17 Time: 08:02 Subjective Narrative: [facility]. Saddle embolism 3 weeks ago. Hemoccult positive positive vomit this admission. Hemoccult negative stool this admission. Plan for endometrial curative surgery in 3 weeks. Hgb 8 points lower than last month. On megace for control of endometrial cancer. All the risk benefits discussed with daughter. Objective - Review of Systems Generalized/Overall Review: Reports: Malaise EENTM: Reports: No Symptoms Reported Respiratory: Reports: No Symptoms Reported Cardiac: Reports: No Symptoms Reported Abdominal: Reports: No Symptoms Reported Genitourinary Symptoms: Reports: No Symptoms Reported Musculoskeletal Complaints: Reports: No Symptoms Reported Neurological: Reports: No Symptoms Reported Skin: Reports: No Symptoms Reported Endocrine: Reports: No Symptoms Reported Misc: All systems neg except as marked - patient demented and grouchy - Vitals Vitals: Last Vital Signs Selected Entries 10/02/17 07:26 Temperature 36.3 C L Temperature Oral Source Pulse Rate 84 Respiratory 23 H Rate Blood Pressure 134/56 Blood Pressure Supine Position O2 Sat by Pulse 95 Oximetry Oxygen Delivery Nasal Cannula Method Oxygen Flow 4 Rate - Abnormal Lab Findings Abnormal Lab Findings: Abnormal Lab Results 10/01/17 10/02/17 10/02/17 Range/Units 22:20 00:35 00:57 RBC (4.2-5.4) M/mm3 Hgb 8.1 L (12.5-16.0) gm/dL Hct 24.9 L (37.0-47.0) % MCV (78-100) fl MCH (27-31) pg RDW (11.5-14.0) % Immature Gran % (Auto) (0.001-0.429) % Immature Gran # (Auto) (0.000-0.0310) K/mm3 Lymphocytes % (20-51) % Monocytes % (0.0-9) % Lymphocytes # (1.5-3.5) k/mm3 PT 14.5 H (9.0-11.0) Seconds INR (Anticoag Therapy) 1.44 H (0.90-1.10) INR Sodium (132-142) mmol/L Plasma Sodium (130-142) mmol/L Chloride (97-106) mmol/L Random Glucose (70-110) mg/dL Gastric Occult Blood Positive H 10/02/17 10/02/17 Range/Units 06:12 06:12 RBC 2.25 L (4.2-5.4) M/mm3 Hgb 7.5 L* (12.5-16.0) gm/dL Hct 22.9 L* (37.0-47.0) % MCV 101.8 H (78-100) fl MCH 33.3 H (27-31) pg RDW 16.3 H (11.5-14.0) % Immature Gran % (Auto) 1.00 H (0.001-0.429) % Immature Gran # (Auto) 0.06 H (0.000-0.0310) K/mm3 Lymphocytes % 15.8 L (20-51) % Monocytes % 10.5 H (0.0-9) % Lymphocytes # 1.0 L (1.5-3.5) k/mm3 PT (9.0-11.0) Seconds INR (Anticoag Therapy) (0.90-1.10) INR Sodium 144 H (132-142) mmol/L Plasma Sodium 147 H (130-142) mmol/L Chloride 108 H (97-106) mmol/L Random Glucose 303 H (70-110) mg/dL Gastric Occult Blood - Exam Constitutional: Present: Alert, Oriented x3, Cooperative, Well developed, No distress ENT Exam: Present: normal ENT inspection, hearing grossly normal Neck: Present: normal inspection Respiratory: Present: normal breath sounds, no respiratory distress Cardiovascular/Chest: Present: regular rate, rhythm, no murmur Abdomen: Present: Normal bowel sounds, soft, nontender, nondistended, no rebound tenderness, no hepatospenomegaly, no masses, obese Extremity: Present: normal range of motion, non-tender, normal inspection, no pedal edema Skin Exam: Present: normal color, warm/dry, no cyanosis Neurologic: Present: alert, other - oriented to self and daughter Appearance: Present: appropriate appearance, neat Eye contact: Present: cooperative, good eye contact, normal speech Assessment/Plan Plan Narrative: Transfuse because of syncope and because she dropped 8 grams of hgb. Protect stomach with protonix and carafate and hope for the best. Continue the Lovenox because she was just diagnosed with a saddle embolism 3 weeks ago. Continue the megace for control of the endometrial cancer, as curative surgery is coming up in 3 weeks. - Problems/Diagnosis (1) GI bleeding Problem: Acute (2) Anemia Problem: Acute Qualifiers: Anemia type: unspecified type Qualified Code(s): D64.9 - Anemia, unspecified (3) Syncope Problem: Acute Qualifiers: Syncope type: unspecified Qualified Code(s): R55 - Syncope and collapse (4) Endometrial neoplasm Problem: Chronic (5) Pulmonary emboli Problem: Chronic
[2017-10-02] MEDS: DOCUSATE SODIUM 100 MG CAPSULE PO SCH ×3 (08:55→21:04)
[2017-10-02] MEDS: SUCRALFATE 1 G/10 ML UDC PO SCH ×4 (08:56→20:55)
[2017-10-02] MEDS: ENOXAPARIN SODIUM 60 MG/0.6 ML SYRG SC SCH ×2 (08:57→19:45)
[2017-10-02] MEDS: LORATADINE 10 MG TABLET PO SCH (08:58)
[2017-10-02] MEDS: PHENYTOIN SODIUM EXTENDED 100 MG CAPSULE PO SCH ×2 (08:59→17:29)
[2017-10-02] MEDS ORDERED: PENICILLIN V POTASSIUM 500 MG TABLET PO SCH (09:00)
[2017-10-02] MEDS: INSULIN REGULAR, HUMAN 100 UNITS/ML VIAL SC SCH (09:00)
[2017-10-02] MEDS ORDERED: clonazePAM 0.5 MG TABLET PO SCH (09:00)
[2017-10-02] MEDS ORDERED: FLU VACC QS2017-18(6MOS UP)/PF 60 MCG/0.5 ML SYRINGE IM ONE (09:00)
[2017-10-02] MEDS ORDERED: SENNOSIDES/DOCUSATE SODIUM 1 TAB TABLET PO SCH (09:00)
[2017-10-02] MEDS ORDERED: SENNOSIDES 8.6 MG TABLET PO SCH (09:00)
[2017-10-02] MEDS: FUROSEMIDE 20 MG TABLET PO SCH (09:13)
[2017-10-02] MEDS: ESCITALOPRAM OXALATE 10 MG TAB PO SCH (09:15)
[2017-10-02] MEDS: MEGESTROL ACETATE 40 MG TABLET PO SCH ×2 (09:16→21:05)
[2017-10-02] MEDS: PENICILLIN V POTASSIUM 250 MG TABLET PO SCH ×4 (09:17→21:05)
[2017-10-02] MEDS: clonazePAM 1 MG TABLET PO SCH (09:17)
[2017-10-02] MEDS: PHENobarbital 30 MG TABLET PO SCH (09:18)
[2017-10-02] MEDS: SENNOSIDES/DOCUSATE SODIUM 1 TAB TABLET PO SCH ×2 (09:19→21:05)
[2017-10-02] MEDS: CYANOCOBALAMIN 1,000 MCG TABLET PO SCH (09:19)
[2017-10-02] MEDS: LISINOPRIL 5 MG TABLET PO SCH (09:19)
[2017-10-02 16:49] LABS: Hematocrit 34.3 % (37.0-47.0)
[2017-10-02 19:27] LABS: Hemoglobin 10.7 gm/dL (12.5-16.0)
[2017-10-02] MEDS: ATORVASTATIN CALCIUM 40 MG TABLET PO SCH (21:04)
[2017-10-02] MEDS: INSULIN GLARGINE,HUM.REC.ANLOG 100 UNITS/ML VIAL SC SCH (21:14)
[2017-10-03] MEDS: POLYVINYL ALCOHOL 150 DROP BTL EACHEYE SCH ×6 (02:23→21:27)
[2017-10-03] MEDS: PANTOPRAZOLE SODIUM 40 MG in NORMAL SALINE 100 ML IV SCH ×2 (02:23→14:52)
[2017-10-03 06:06] LABS: Hematocrit 29.2 % (37.0-47.0); Hemoglobin 9.5 gm/dL (12.5-16.0); Mean Cell Volume 94.2 fl (78-100); Mean Corpuscular Hemoglobin 30.6 pg (27-31); Mean Corpuscular Hgb Conc 32.5 g/dl (32-36); Mean Platelet Volume 8.7 fl (6.0-9.5); Neutrophil # 4.9 K/mm3 (1.3-6.0); Platelet Count 254 K/mm3 (150-450); Red Cell Distribution Width 19.9 % (11.5-14.0); White Blood Count 7.4 K/mm3 (4.0-10.5)
[2017-10-03 06:17] LABS: BUN/Creatinine Ratio 15.5 (9.0-21.6); Calcium * 8.5 mg/dL (7.9-10.9); Carbon Dioxide 29.3 mmol/L (24-32.6); Estimated Creat Clear 79.9; Potassium 3.3 mmol/L (3.4-4.6)
[2017-10-03] MEDS: ENOXAPARIN SODIUM 60 MG/0.6 ML SYRG SC SCH (07:35)
[2017-10-03] MEDS: SUCRALFATE 1 G/10 ML UDC PO SCH ×4 (07:35→21:19)
--- NOTE | 2017-10-03 07:43 | PN ---
Subjective - Date and Time Seen Date: 10/03/17 Time: 07:40 Subjective Narrative: Awake but non verbal. Not uncommon behavior for her. No distress. Objective - Review of Systems Generalized/Overall Review: Reports: No Symptoms Reported - won't answer. - Vitals Vitals: Last Vital Signs Selected Entries 10/03/17 06:31 Temperature 36.7 C Temperature Oral Source Pulse Rate 70 Pulse Rhythm Regular Pulse Strength Normal Respiratory 14 Rate Respiratory Normal Depth Respiratory Normal Effort Non-Labored Respiratory Normal Pattern Blood Pressure 138/54 Blood Pressure Sitting Position O2 Sat by Pulse 96 Oximetry Oxygen Delivery Nasal Cannula Method Oxygen Flow 3 Rate - Abnormal Lab Findings Abnormal Lab Findings: Abnormal Lab Results 10/02/17 10/02/17 10/03/17 Range/Units 16:51 19:00 06:02 RBC 3.10 L (4.2-5.4) M/mm3 Hgb 11.0 L 10.7 L 9.5 L (12.5-16.0) gm/dL Hct 34.3 L 33.0 L 29.2 L (37.0-47.0) % RDW 19.9 H (11.5-14.0) % Immature Gran % (Auto) 1.10 H (0.001-0.429) % Immature Gran # (Auto) 0.08 H (0.000-0.0310) K/mm3 Lymphocytes % 19.2 L (20-51) % Monocytes % 10.7 H (0.0-9) % Lymphocytes # 1.4 L (1.5-3.5) k/mm3 Sodium (132-142) mmol/L Plasma Sodium (130-142) mmol/L Potassium (3.4-4.6) mmol/L Chloride (97-106) mmol/L Random Glucose (70-110) mg/dL 10/03/17 Range/Units 06:02 RBC (4.2-5.4) M/mm3 Hgb (12.5-16.0) gm/dL Hct (37.0-47.0) % RDW (11.5-14.0) % Immature Gran % (Auto) (0.001-0.429) % Immature Gran # (Auto) (0.000-0.0310) K/mm3 Lymphocytes % (20-51) % Monocytes % (0.0-9) % Lymphocytes # (1.5-3.5) k/mm3 Sodium 144 H (132-142) mmol/L Plasma Sodium 147 H (130-142) mmol/L Potassium 3.3 L (3.4-4.6) mmol/L Chloride 110 H (97-106) mmol/L Random Glucose 299 H (70-110) mg/dL - Exam Constitutional: Present: Alert, Well developed, Morbidly obese ENT Exam: Present: normal ENT inspection Neck: Present: normal inspection Respiratory: Present: normal breath sounds, no respiratory distress Cardiovascular/Chest: Present: regular rate, rhythm, no murmur Abdomen: Present: Normal bowel sounds, soft, nontender, nondistended, no rebound tenderness, no hepatospenomegaly, no masses, obese Extremity: Present: normal inspection, no pedal edema Skin Exam: Present: normal color, warm/dry, no cyanosis Neurologic: Present: alert Appearance: Present: appropriate appearance, neat Assessment/Plan Plan Narrative: As before. Monitor. Add dulcolax. All stools OB. - Problems/Diagnosis (1) GI bleeding Problem: Acute (2) Anemia Problem: Acute Qualifiers: Anemia type: unspecified type Qualified Code(s): D64.9 - Anemia, unspecified (3) Syncope Problem: Acute Qualifiers: Syncope type: unspecified Qualified Code(s): R55 - Syncope and collapse (4) Endometrial neoplasm Problem: Chronic (5) Pulmonary emboli Problem: Chronic
[2017-10-03] MEDS ORDERED: POLYVINYL ALCOHOL 150 DROP BTL EACHEYE SCH (07:45)
[2017-10-03] MEDS: BISACODYL 5 MG TABLET.DR PO SCH ×3 (08:52→21:20)
[2017-10-03] MEDS: POTASSIUM CHLORIDE 10 MEQ TABLET.SA PO SCH ×2 (08:52→09:38)
[2017-10-03] MEDS: DOCUSATE SODIUM 100 MG CAPSULE PO SCH ×2 (08:53→21:20)
[2017-10-03] MEDS: LORATADINE 10 MG TABLET PO SCH (08:53)
[2017-10-03] MEDS: INSULIN REGULAR, HUMAN 100 UNITS/ML VIAL SC SCH (08:54)
[2017-10-03] MEDS: PHENYTOIN SODIUM EXTENDED 100 MG CAPSULE PO SCH ×2 (08:54→16:45)
[2017-10-03] MEDS: FUROSEMIDE 20 MG TABLET PO SCH (08:57)
[2017-10-03] MEDS: ESCITALOPRAM OXALATE 10 MG TAB PO SCH (08:58)
[2017-10-03] MEDS: MEGESTROL ACETATE 40 MG TABLET PO SCH ×2 (08:59→21:25)
[2017-10-03] MEDS: clonazePAM 1 MG TABLET PO SCH (08:59)
[2017-10-03] MEDS: PENICILLIN V POTASSIUM 250 MG TABLET PO SCH ×4 (09:00→21:26)
[2017-10-03] MEDS ORDERED: CYANOCOBALAMIN 1000 MCG PO SCH (09:00)
[2017-10-03] MEDS ORDERED: PHENobarbital 30 MG TABLET PO SCH (09:00)
[2017-10-03] MEDS: SENNOSIDES/DOCUSATE SODIUM 1 TAB TABLET PO SCH ×2 (09:01→21:27)
[2017-10-03] MEDS: CYANOCOBALAMIN 1,000 MCG TABLET PO SCH (09:01)
[2017-10-03] MEDS: LISINOPRIL 5 MG TABLET PO SCH (09:03)
[2017-10-03] MEDS: PHENobarbital 30 MG TABLET PO SCH (09:08)
[2017-10-03 17:00] LABS: Hemoglobin 11.3 gm/dL (12.5-16.0); Mean Cell Volume 96.6 fl (78-100); Mean Corpuscular Hemoglobin 32.1 pg (27-31); Mean Corpuscular Hgb Conc 33.2 g/dl (32-36); Mean Platelet Volume 9.4 fl (6.0-9.5); Platelet Count 248 K/mm3 (150-450); Red Blood Count 3.52 M/mm3 (4.2-5.4); Red Cell Distribution Width 19.9 % (11.5-14.0); White Blood Count 7.1 K/mm3 (4.0-10.5)
[2017-10-03] MEDS: INSULIN GLARGINE,HUM.REC.ANLOG 100 UNITS/ML VIAL SC SCH (21:20)
[2017-10-03] MEDS: ATORVASTATIN CALCIUM 40 MG TABLET PO SCH (21:24)
[2017-10-03] MEDS: SENNOSIDES 8.6 MG TABLET PO SCH (21:27)
[2017-10-04] MEDS: POLYVINYL ALCOHOL 150 DROP BTL EACHEYE SCH ×6 (01:36→21:21)
[2017-10-04] MEDS: PANTOPRAZOLE SODIUM 40 MG in NORMAL SALINE 100 ML IV SCH ×2 (02:00→16:29)
[2017-10-04 06:06] LABS: Hematocrit 30.9 % (37.0-47.0); Mean Cell Volume 96.9 fl (78-100); Mean Corpuscular Hemoglobin 31.3 pg (27-31); Mean Corpuscular Hgb Conc 32.4 g/dl (32-36); Mean Platelet Volume 8.6 fl (6.0-9.5); NRBC# 0.1 k/mm3 (0-1); Neutrophil # 3.6 K/mm3 (1.3-6.0); Neutrophil % 57.4 % (42-75.0); Platelet Count 246 K/mm3 (150-450); Red Blood Count 3.19 M/mm3 (4.2-5.4); Red Cell Distribution Width 19.4 % (11.5-14.0); White Blood Count 6.3 K/mm3 (4.0-10.5)
[2017-10-04 06:10] LABS: Anion Gap 7.5 mmol/L (6.8-13.8); BUN/Creatinine Ratio 18.1 (9.0-21.6); Estimated Creat Clear 78.8; Potassium 3.5 mmol/L (3.4-4.6)
[2017-10-04] MEDS: SUCRALFATE 1 G/10 ML UDC PO SCH ×4 (06:55→21:18)
[2017-10-04] MEDS ORDERED: BISACODYL 5 MG TABLET.DR PO SCH (07:29)
[2017-10-04] MEDS ORDERED: MAGNESIUM HYDROXIDE 30 ML UDC PO PRN (07:29)
--- NOTE | 2017-10-04 08:02 | PN ---
Subjective - Date and Time Seen Date: 10/04/17 Time: 07:59 Subjective Narrative: Awake but non verbal. Stopped Lovenox yesterday because of increasing bruising. Monitoring labs. No BMs. Objective - Review of Systems Generalized/Overall Review: Reports: No Symptoms Reported - not talking - Vitals Vitals: Last Vital Signs Selected Entries 10/04/17 06:59 Temperature 36.4 C L Temperature Temporal Artery Source Scan Pulse Rate 71 Respiratory 21 H Rate Blood Pressure 128/61 Blood Pressure Supine Position O2 Sat by Pulse 96 Oximetry Oxygen Delivery Nasal Cannula Method Oxygen Flow 3 Rate - Abnormal Lab Findings Abnormal Lab Findings: Abnormal Lab Results 10/03/17 10/04/17 10/04/17 Range/Units 13:26 06:01 06:01 RBC 3.52 L 3.19 L (4.2-5.4) M/mm3 Hgb 11.3 L 10.0 L (12.5-16.0) gm/dL Hct 34.0 L 30.9 L (37.0-47.0) % MCH 32.1 H 31.3 H (27-31) pg RDW 19.9 H 19.4 H (11.5-14.0) % Immature Gran % (Auto) 1.40 H (0.001-0.429) % Immature Gran # (Auto) 0.09 H (0.000-0.0310) K/mm3 Monocytes % 9.9 H (0.0-9) % Eosinophils % 3.8 H (0.0-3.0) % Sodium 145 H (132-142) mmol/L Plasma Sodium 147 H (130-142) mmol/L Chloride 111 H (97-106) mmol/L Random Glucose 234 H (70-110) mg/dL - Exam Constitutional: Present: Alert, Well developed, No distress, Morbidly obese ENT Exam: Present: normal ENT inspection Neck: Present: normal inspection Respiratory: Present: normal breath sounds, no respiratory distress Cardiovascular/Chest: Present: regular rate, rhythm, no murmur Abdomen: Present: Normal bowel sounds, soft, nontender, nondistended, no rebound tenderness, no hepatospenomegaly, no masses, obese Extremity: Present: pedal edema Skin Exam: Present: normal color, warm/dry, no cyanosis Neurologic: Present: alert Appearance: Present: appropriate appearance, neat Eye contact: Present: avoids eye contact Assessment/Plan Plan Narrative: Continue to monitor labs. Hold lovenox. Increase laxatives.d - Problems/Diagnosis (1) GI bleeding Problem: Acute (2) Anemia Problem: Acute Qualifiers: Anemia type: unspecified type Qualified Code(s): D64.9 - Anemia, unspecified (3) Syncope Problem: Acute Qualifiers: Syncope type: unspecified Qualified Code(s): R55 - Syncope and collapse (4) Endometrial neoplasm Problem: Chronic (5) Pulmonary emboli Problem: Chronic
[2017-10-04] MEDS ORDERED: PHENobarbital 30 MG TABLET PO SCH (09:00)
[2017-10-04] MEDS: LORATADINE 10 MG TABLET PO SCH (09:33)
[2017-10-04] MEDS: PHENYTOIN SODIUM EXTENDED 100 MG CAPSULE PO SCH ×2 (09:34→16:35)
[2017-10-04] MEDS: DOCUSATE SODIUM 100 MG CAPSULE PO SCH ×2 (09:34→21:19)
[2017-10-04] MEDS: BISACODYL 5 MG TABLET.DR PO SCH ×2 (09:35→21:18)
[2017-10-04] MEDS: INSULIN REGULAR, HUMAN 100 UNITS/ML VIAL SC SCH (09:36)
[2017-10-04] MEDS: POTASSIUM CHLORIDE 10 MEQ TABLET.SA PO SCH (09:41)
[2017-10-04] MEDS: ESCITALOPRAM OXALATE 10 MG TAB PO SCH (09:53)
[2017-10-04] MEDS: MEGESTROL ACETATE 40 MG TABLET PO SCH ×2 (09:54→21:20)
[2017-10-04] MEDS: PENICILLIN V POTASSIUM 250 MG TABLET PO SCH ×4 (09:54→21:20)
[2017-10-04] MEDS: FUROSEMIDE 20 MG TABLET PO SCH (09:56)
[2017-10-04] MEDS: CYANOCOBALAMIN 1,000 MCG TABLET PO SCH (09:57)
[2017-10-04] MEDS: SENNOSIDES/DOCUSATE SODIUM 1 TAB TABLET PO SCH ×2 (09:57→21:20)
[2017-10-04] MEDS: LISINOPRIL 5 MG TABLET PO SCH (09:58)
[2017-10-04] MEDS: PHENobarbital 30 MG TABLET PO SCH (10:17)
[2017-10-04] MEDS: clonazePAM 1 MG TABLET PO SCH (10:17)
[2017-10-04] MEDS: FERROUS SULFATE 325 MG TABLET PO SCH ×3 (10:20→16:36)
[2017-10-04] MEDS: MULTIVITAMIN/IRON/FOLIC ACID 1 TAB TABLET PO SCH ×2 (10:20→10:22)
[2017-10-04] MEDS: INSULIN GLARGINE,HUM.REC.ANLOG 100 UNITS/ML VIAL SC SCH (21:17)
[2017-10-04] MEDS: SENNOSIDES 8.6 MG TABLET PO SCH (21:19)
[2017-10-04] MEDS: ATORVASTATIN CALCIUM 40 MG TABLET PO SCH (21:20)
[2017-10-05] MEDS: POLYVINYL ALCOHOL 150 DROP BTL EACHEYE SCH ×6 (00:35→21:17)
[2017-10-05] MEDS: PANTOPRAZOLE SODIUM 40 MG in NORMAL SALINE 100 ML IV SCH (03:16)
[2017-10-05 05:58] LABS: Hematocrit 32.1 % (37.0-47.0); Hemoglobin 10.6 gm/dL (12.5-16.0); Mean Cell Volume 97.6 fl (78-100); Mean Corpuscular Hemoglobin 32.2 pg (27-31); Mean Platelet Volume 8.7 fl (6.0-9.5); NRBC# 0.1 k/mm3 (0-1); Neutrophil # 3.7 K/mm3 (1.3-6.0); Neutrophil % 60.8 % (42-75.0); Platelet Count 221 K/mm3 (150-450); Red Blood Count 3.29 M/mm3 (4.2-5.4); Red Cell Distribution Width 19.3 % (11.5-14.0); White Blood Count 6.1 K/mm3 (4.0-10.5)
[2017-10-05 06:00] LABS: Anion Gap 8.9 mmol/L (6.8-13.8); BUN/Creatinine Ratio 20.3 (9.0-21.6); Calcium * 8.3 mg/dL (7.9-10.9); Carbon Dioxide 29.4 mmol/L (24-32.6); Estimated Creat Clear 88.6; Potassium 3.3 mmol/L (3.4-4.6)
[2017-10-05] MEDS: SUCRALFATE 1 G/10 ML UDC PO SCH ×4 (07:11→21:14)
[2017-10-05] MEDS: SENNOSIDES/DOCUSATE SODIUM 1 TAB TABLET PO SCH (08:25)
[2017-10-05] MEDS: ESCITALOPRAM OXALATE 10 MG TAB PO SCH (08:25)
[2017-10-05] MEDS: POTASSIUM CHLORIDE 10 MEQ TABLET.SA PO SCH (08:26)
[2017-10-05] MEDS: CYANOCOBALAMIN 1,000 MCG TABLET PO SCH (08:26)
[2017-10-05] MEDS: PHENYTOIN SODIUM EXTENDED 100 MG CAPSULE PO SCH ×2 (08:26→17:51)
[2017-10-05] MEDS: MEGESTROL ACETATE 40 MG TABLET PO SCH ×2 (08:26→21:16)
[2017-10-05] MEDS: FERROUS SULFATE 325 MG TABLET PO SCH ×2 (08:26→17:51)
[2017-10-05] MEDS: MULTIVITAMIN/IRON/FOLIC ACID 1 TAB TABLET PO SCH (08:26)
[2017-10-05] MEDS: FUROSEMIDE 20 MG TABLET PO SCH (08:27)
[2017-10-05] MEDS: PENICILLIN V POTASSIUM 250 MG TABLET PO SCH ×3 (08:27→17:58)
[2017-10-05] MEDS: DOCUSATE SODIUM 100 MG CAPSULE PO SCH ×2 (08:27→21:15)
[2017-10-05] MEDS: LORATADINE 10 MG TABLET PO SCH (08:27)
[2017-10-05] MEDS: LISINOPRIL 5 MG TABLET PO SCH (08:27)
[2017-10-05] MEDS: BISACODYL 5 MG TABLET.DR PO SCH (08:27)
[2017-10-05] MEDS: PHENobarbital 30 MG TABLET PO SCH (08:31)
[2017-10-05] MEDS: clonazePAM 1 MG TABLET PO SCH (08:43)
[2017-10-05] MEDS: INSULIN REGULAR, HUMAN 100 UNITS/ML VIAL SC SCH (08:43)
--- NOTE | 2017-10-05 10:09 | PN ---
Subjective - Date and Time Seen Date: 10/05/17 Time: 10:02 Subjective Narrative: Awake but non verbal. Stopped Lovenox yesterday because of increasing bruising. Having multiple hemoccult negative stools. This suggests blood loss has been into soft tissues, not gi. Because constipation is better, we will back off laxatives. We have already stopped lovenox for now because of increasing bruising size. I doubt we need telemetry now, so we will stop it. This is still a rock and a hard place. Hgb is still holding steady about ten. We will watch in the hospital over the weekend and hope for the best. We will will hold the lovenox another week or so. Objective - Review of Systems Generalized/Overall Review: Reports: No Symptoms Reported - patient remains non verbal. - Vitals Vitals: Last Vital Signs Selected Entries 10/05/17 10/05/17 06:59 08:27 Temperature 36.4 C L Temperature Temporal Artery Source Scan Pulse Rate 76 76 Respiratory 21 H Rate Blood Pressure 123/51 123/51 Blood Pressure 75 75 Mean O2 Sat by Pulse 93 Oximetry Oxygen Delivery Nasal Cannula Method Oxygen Flow 3 Rate - Abnormal Lab Findings Abnormal Lab Findings: Abnormal Lab Results 10/05/17 10/05/17 Range/Units 05:49 05:49 RBC 3.29 L (4.2-5.4) M/mm3 Hgb 10.6 L (12.5-16.0) gm/dL Hct 32.1 L (37.0-47.0) % MCH 32.2 H (27-31) pg RDW 19.3 H (11.5-14.0) % Immature Gran % (Auto) 1.50 H (0.001-0.429) % Immature Gran # (Auto) 0.09 H (0.000-0.0310) K/mm3 Monocytes % 10.6 H (0.0-9) % Eosinophils % 4.6 H (0.0-3.0) % Lymphocytes # 1.4 L (1.5-3.5) k/mm3 Sodium 144 H (132-142) mmol/L Plasma Sodium 146 H (130-142) mmol/L Potassium 3.3 L (3.4-4.6) mmol/L Chloride 109 H (97-106) mmol/L Random Glucose 232 H (70-110) mg/dL - Exam Constitutional: Present: Alert, Well developed, No distress, Morbidly obese ENT Exam: Present: normal ENT inspection Neck: Present: normal inspection Respiratory: Present: normal breath sounds, no respiratory distress Cardiovascular/Chest: Present: regular rate, rhythm, no murmur Abdomen: Present: Normal bowel sounds, soft, nontender, nondistended, no rebound tenderness, no hepatospenomegaly, no masses, obese Extremity: Present: normal inspection, pedal edema Skin Exam: Present: normal color, warm/dry, no cyanosis, other - bruising remains about the same Appearance: Present: neat Assessment/Plan Plan Narrative: DC telemetry. less laxatives. DC stools for OB. follow labs. - Problems/Diagnosis (1) GI bleeding Problem: Acute (2) Anemia Problem: Acute Qualifiers: Anemia type: unspecified type Qualified Code(s): D64.9 - Anemia, unspecified (3) Syncope Problem: Acute Qualifiers: Syncope type: unspecified Qualified Code(s): R55 - Syncope and collapse (4) Endometrial neoplasm Problem: Chronic (5) Pulmonary emboli Problem: Chronic
[2017-10-05] MEDS: PANTOPRAZOLE SODIUM 40 MG TABLET.EC PO SCH ×2 (11:31→21:16)
[2017-10-05] MEDS: INSULIN GLARGINE,HUM.REC.ANLOG 100 UNITS/ML VIAL SC SCH (21:15)
[2017-10-05] MEDS: ATORVASTATIN CALCIUM 40 MG TABLET PO SCH (21:16)
[2017-10-05] MEDS: SENNOSIDES 8.6 MG TABLET PO SCH (21:16)
[2017-10-06] MEDS: POLYVINYL ALCOHOL 150 DROP BTL EACHEYE SCH ×8 (02:57→21:43)
[2017-10-06 05:43] LABS: Hematocrit 33.6 % (37.0-47.0); Hemoglobin 10.8 gm/dL (12.5-16.0); Mean Cell Volume 99.1 fl (78-100); Mean Corpuscular Hemoglobin 31.9 pg (27-31); Mean Corpuscular Hgb Conc 32.1 g/dl (32-36); NRBC# 0.1 k/mm3 (0-1); Neutrophil # 4.5 K/mm3 (1.3-6.0); Neutrophil % 64.2 % (42-75.0); Platelet Count 208 K/mm3 (150-450); Red Blood Count 3.39 M/mm3 (4.2-5.4); Red Cell Distribution Width 19.6 % (11.5-14.0)
[2017-10-06 05:50] LABS: Anion Gap 8.6 mmol/L (6.8-13.8); Calcium * 8.3 mg/dL (7.9-10.9); Carbon Dioxide 28.8 mmol/L (24-32.6); Potassium 3.4 mmol/L (3.4-4.6)
[2017-10-06] MEDS: PANTOPRAZOLE SODIUM 40 MG TABLET.EC PO SCH ×2 (06:58→21:20)
[2017-10-06] MEDS: SUCRALFATE 1 G/10 ML UDC PO SCH ×4 (06:59→21:16)
[2017-10-06] MEDS ORDERED: INSULIN REGULAR, HUMAN 100 UNITS/ML VIAL SC SCH (09:00)
[2017-10-06] MEDS: PHENYTOIN SODIUM EXTENDED 100 MG CAPSULE PO SCH ×2 (09:24→16:27)
[2017-10-06] MEDS: ESCITALOPRAM OXALATE 10 MG TAB PO SCH (09:24)
[2017-10-06] MEDS: MEGESTROL ACETATE 40 MG TABLET PO SCH ×2 (09:26→21:21)
[2017-10-06] MEDS: MULTIVITAMIN/IRON/FOLIC ACID 1 TAB TABLET PO SCH (09:26)
[2017-10-06] MEDS: LISINOPRIL 5 MG TABLET PO SCH (09:27)
[2017-10-06] MEDS: POTASSIUM CHLORIDE 10 MEQ TABLET.SA PO SCH (09:27)
[2017-10-06] MEDS: LORATADINE 10 MG TABLET PO SCH (09:28)
[2017-10-06] MEDS: CYANOCOBALAMIN 1,000 MCG TABLET PO SCH (09:28)
[2017-10-06] MEDS: FERROUS SULFATE 325 MG TABLET PO SCH ×2 (09:28→16:28)
[2017-10-06] MEDS: FUROSEMIDE 20 MG TABLET PO SCH (09:29)
[2017-10-06] MEDS: DOCUSATE SODIUM 100 MG CAPSULE PO SCH ×2 (09:33→21:17)
[2017-10-06] MEDS: clonazePAM 1 MG TABLET PO SCH (09:35)
[2017-10-06] MEDS: PHENobarbital 30 MG TABLET PO SCH (09:36)
[2017-10-06] MEDS ORDERED: NYSTATIN 15 APPL BTL TP PRN (11:45)
[2017-10-06] MEDS: INSULIN REGULAR, HUMAN 100 UNITS/ML VIAL SC SCH ×2 (12:24→16:39)
[2017-10-06] MEDS: INSULIN GLARGINE,HUM.REC.ANLOG 100 UNITS/ML VIAL SC SCH (21:19)
[2017-10-06] MEDS: ATORVASTATIN CALCIUM 40 MG TABLET PO SCH (21:20)
[2017-10-06] MEDS: SENNOSIDES 8.6 MG TABLET PO SCH (21:22)
[2017-10-07] MEDS: POLYVINYL ALCOHOL 150 DROP BTL EACHEYE SCH ×6 (02:23→22:22)
[2017-10-07] MEDS: SUCRALFATE 1 G/10 ML UDC PO SCH ×4 (07:17→20:15)
[2017-10-07] MEDS: INSULIN REGULAR, HUMAN 100 UNITS/ML VIAL SC SCH ×3 (07:18→17:03)
[2017-10-07] MEDS: PANTOPRAZOLE SODIUM 40 MG TABLET.EC PO SCH ×2 (07:20→20:17)
[2017-10-07] MEDS: MULTIVITAMIN/IRON/FOLIC ACID 1 TAB TABLET PO SCH (08:29)
[2017-10-07] MEDS: DOCUSATE SODIUM 100 MG CAPSULE PO SCH ×2 (08:30→20:15)
[2017-10-07] MEDS: FERROUS SULFATE 325 MG TABLET PO SCH ×2 (08:30→17:02)
[2017-10-07] MEDS: PHENYTOIN SODIUM EXTENDED 100 MG CAPSULE PO SCH ×2 (08:30→17:02)
[2017-10-07] MEDS: LORATADINE 10 MG TABLET PO SCH (08:30)
[2017-10-07] MEDS: FUROSEMIDE 20 MG TABLET PO SCH (08:31)
[2017-10-07] MEDS: POTASSIUM CHLORIDE 10 MEQ TABLET.SA PO SCH (08:31)
[2017-10-07] MEDS: MEGESTROL ACETATE 40 MG TABLET PO SCH ×2 (08:32→20:16)
[2017-10-07] MEDS: ESCITALOPRAM OXALATE 10 MG TAB PO SCH (08:32)
[2017-10-07] MEDS: LISINOPRIL 5 MG TABLET PO SCH (08:33)
[2017-10-07] MEDS: CYANOCOBALAMIN 1,000 MCG TABLET PO SCH (08:33)
[2017-10-07] MEDS: clonazePAM 1 MG TABLET PO SCH (08:37)
[2017-10-07] MEDS: PHENobarbital 30 MG TABLET PO SCH (08:37)
[2017-10-07 10:32] LABS: Hematocrit 36.6 % (37.0-47.0); Hemoglobin 11.6 gm/dL (12.5-16.0); Mean Cell Volume 100.8 fl (78-100); Mean Corpuscular Hgb Conc 31.7 g/dl (32-36); Mean Platelet Volume 8.9 fl (6.0-9.5); NRBC# 0.1 k/mm3 (0-1); Neutrophil # 5.2 K/mm3 (1.3-6.0); Platelet Count 187 K/mm3 (150-450); Red Blood Count 3.63 M/mm3 (4.2-5.4); Red Cell Distribution Width 19.9 % (11.5-14.0); White Blood Count 7.6 K/mm3 (4.0-10.5)
[2017-10-07 10:45] LABS: Albumin * 2.5 gm/dl (3.4-5.0); BUN/Creatinine Ratio 19.4 (9.0-21.6); Bilirubin, Total 0.7 mg/dL (0.0-1.1); Ca. Corrected For Albumin 9.4 mg/dL (8.4-10.2); Calcium * 8.5 mg/dL (7.9-10.9); Carbon Dioxide 27.2 mmol/L (24-32.6); Potassium 4.2 mmol/L (3.4-4.6); Total Protein 6.4 gm/dL (6.2-8.2)
--- NOTE | 2017-10-07 12:24 | PN ---
Subjective - Date and Time Seen Date: 10/06/17 Objective - Vitals Vitals: Last Vital Signs Temp 36.6 C 10/07/17 11:53 Pulse 84 10/07/17 11:53 Resp 14 10/07/17 11:53 BP 132/64 10/07/17 11:53 Pulse Ox 95 10/07/17 11:53 - Abnormal Lab Findings Abnormal Lab Findings: Abnormal Lab Results 10/07/17 10/07/17 Range/Units 10:25 10:28 RBC 3.63 L (4.2-5.4) M/mm3 Hgb 11.6 L (12.5-16.0) gm/dL Hct 36.6 L (37.0-47.0) % MCV 100.8 H (78-100) fl MCH 32.0 H (27-31) pg MCHC 31.7 L (32-36) g/dl RDW 19.9 H (11.5-14.0) % Immature Gran % (Auto) 1.30 H (0.001-0.429) % Immature Gran # (Auto) 0.10 H (0.000-0.0310) K/mm3 Lymphocytes % 16.9 L (20-51) % Monocytes % 9.4 H (0.0-9) % Eosinophils % 3.7 H (0.0-3.0) % Lymphocytes # 1.3 L (1.5-3.5) k/mm3 Plasma Sodium 143 H (130-142) mmol/L Chloride 109 H (97-106) mmol/L Random Glucose 174 H D (70-110) mg/dL ALT 14 L (19-67) U/L Albumin 2.5 L (3.4-5.0) gm/dl
--- NOTE | 2017-10-07 12:26 | PN ---
Subjective - Date and Time Seen Date: 10/07/17 Objective - Vitals Vitals: Last Vital Signs Temp 36.6 C 10/07/17 11:53 Pulse 84 10/07/17 11:53 Resp 14 10/07/17 11:53 BP 132/64 10/07/17 11:53 Pulse Ox 95 10/07/17 11:53 - Abnormal Lab Findings Abnormal Lab Findings: Abnormal Lab Results 10/07/17 10/07/17 Range/Units 10:25 10:28 RBC 3.63 L (4.2-5.4) M/mm3 Hgb 11.6 L (12.5-16.0) gm/dL Hct 36.6 L (37.0-47.0) % MCV 100.8 H (78-100) fl MCH 32.0 H (27-31) pg MCHC 31.7 L (32-36) g/dl RDW 19.9 H (11.5-14.0) % Immature Gran % (Auto) 1.30 H (0.001-0.429) % Immature Gran # (Auto) 0.10 H (0.000-0.0310) K/mm3 Lymphocytes % 16.9 L (20-51) % Monocytes % 9.4 H (0.0-9) % Eosinophils % 3.7 H (0.0-3.0) % Lymphocytes # 1.3 L (1.5-3.5) k/mm3 Plasma Sodium 143 H (130-142) mmol/L Chloride 109 H (97-106) mmol/L Random Glucose 174 H D (70-110) mg/dL ALT 14 L (19-67) U/L Albumin 2.5 L (3.4-5.0) gm/dl
[2017-10-07] MEDS: INSULIN GLARGINE,HUM.REC.ANLOG 100 UNITS/ML VIAL SC SCH (20:12)
[2017-10-07] MEDS: ATORVASTATIN CALCIUM 40 MG TABLET PO SCH (20:16)
[2017-10-07] MEDS: SENNOSIDES 8.6 MG TABLET PO SCH (20:17)
[2017-10-08] MEDS: POLYVINYL ALCOHOL 150 DROP BTL EACHEYE SCH ×4 (01:37→13:27)
[2017-10-08] MEDS: INSULIN REGULAR, HUMAN 100 UNITS/ML VIAL SC SCH ×2 (08:08→12:38)
[2017-10-08] MEDS: SUCRALFATE 1 G/10 ML UDC PO SCH ×2 (08:08→11:50)
[2017-10-08] MEDS: LORATADINE 10 MG TABLET PO SCH (08:09)
[2017-10-08] MEDS: ESCITALOPRAM OXALATE 10 MG TAB PO SCH (08:09)
[2017-10-08] MEDS: MEGESTROL ACETATE 40 MG TABLET PO SCH (08:09)
[2017-10-08] MEDS: DOCUSATE SODIUM 100 MG CAPSULE PO SCH (08:09)
[2017-10-08] MEDS: LISINOPRIL 5 MG TABLET PO SCH (08:09)
[2017-10-08] MEDS: FERROUS SULFATE 325 MG TABLET PO SCH (08:09)
[2017-10-08] MEDS: POTASSIUM CHLORIDE 10 MEQ TABLET.SA PO SCH (08:09)
[2017-10-08] MEDS: PHENYTOIN SODIUM EXTENDED 100 MG CAPSULE PO SCH (08:09)
[2017-10-08] MEDS: CYANOCOBALAMIN 1,000 MCG TABLET PO SCH (08:09)
[2017-10-08] MEDS: PANTOPRAZOLE SODIUM 40 MG TABLET.EC PO SCH (08:10)
[2017-10-08] MEDS: FUROSEMIDE 20 MG TABLET PO SCH (08:10)
[2017-10-08] MEDS: MULTIVITAMIN/IRON/FOLIC ACID 1 TAB TABLET PO SCH (08:10)
[2017-10-08] MEDS: PHENobarbital 30 MG TABLET PO SCH (08:15)
[2017-10-08] MEDS: clonazePAM 1 MG TABLET PO SCH (08:15)
--- NOTE | 2017-10-08 13:06 | DS ---
(1) GI bleeding Problem: Acute Qualifiers: GI bleed type/associated pathology: gastritis Gastritis type: acute gastritis Qualified Code(s): K29.01 - Acute gastritis with bleeding (2) Anemia Problem: Acute Qualifiers: Anemia type: unspecified type Qualified Code(s): D64.9 - Anemia, unspecified (3) Syncope Problem: Acute Qualifiers: Syncope type: unspecified Qualified Code(s): R55 - Syncope and collapse (4) Endometrial neoplasm Problem: Chronic (5) Pulmonary emboli Problem: Chronic Qualifiers: Pulmonary embolism type: saddle Chronicity: chronic Acute cor pulmonale presence: without acute cor pulmonale Qualified Code(s): I26.92 - Saddle embolus of pulmonary artery without acute cor pulmonale (6) Hematoma Problem: Acute (7) Mental and behavioral problem in adult Problem: Chronic (8) Diabetes type 1, controlled Problem: Chronic Description of Stay: Following admission she was transfused because of a substantial DROP in hgb PLUS her syncope. Initially I thought the blood loss was from gastritis, so we continued her lovenox and accentuated her GI healing meds, because she vomited gastrocult positive material and she had a recent saddle pulmonary embolism 3 weeks prior to this admission. She was on megace to keep her endometrial cancer under control. Curative surgery is contemplated in a few months. All of this was discussed in detail with family. After a while, it became clear she was losing blood into several hematomas, so the lovenox was stopped. Hgb has remained stable. Hematomas are stable. We will check labs in a week. If Hgb stable, will start lovenox again then and hope for the best. Procedures Performed: none [facility]charge Disposition: [facility] Disposition: [facility] Condition: Stable Discharge Activity: Activity as tolerated Discharge Diet: Consistent carbs Problem Oriented Discharge Instructions to Patient/Family: Syncope, Easy-to- Read Additional Patient Instructions (free text): CBC and CMP in 1 week Prescriptions (Any new or edited meds): Insulin Regular, Human [Novolin R] See Protocol SC DAILY #1 ml Complete Home Medications List: Complete Home Medication List: Atorvastatin Calcium [Lipitor] 40 mg PO HS 07/28/14 Cyanocobalamin (Vitamin B-12) [B-12] 1,000 mcg PO DAILY 07/28/14 Escitalopram Oxalate [Lexapro] 20 mg PO DAILY 07/28/14 Furosemide [Lasix] 20 mg PO DAILY 07/28/14 Insulin Glargine,Hum.rec.anlog [Lantus] 75 units SQ HS 07/28/14 Lisinopril [Zestril] 5 mg PO DAILY 07/28/14 Phenytoin Sodium Extended [Dilantin] 200 mg PO BIDWM 07/28/14 Sennosides [Senokot] 17.2 mg PO DAILY 07/28/14 clonazePAM [Klonopin] 2 mg PO DAILY 07/28/14 Loratadine 10 mg PO DAILY 08/27/17 HYDROcodone/ACETAMINOPHEN [[place] 5-325] 1 tab PO Q4H PRN 10/01/17 Megestrol Acetate [Megace] 40 mg PO BID 10/01/17 Nystatin 1 each MC BID PRN 10/01/17 Penicillin V Potassium 500 mg PO QID 10/01/17 Acetaminophen 650 mg PO Q6H PRN 10/02/17 Magnesium Hydroxide [Milk Of Magnesia] 30 ml PO DAILY PRN 10/02/17 Ondansetron HCl [Zofran] 4 mg PO Q8H PRN 10/02/17 PHENobarbital [Phenobarbital] 3 cap PO DAILY 10/02/17 Polyvinyl Alcohol [Artificial Tears] 1 drop EACHEYE Q4H 10/02/17 Docusate Sodium [Colace] 100 mg PO BID capsule 10/08/17 Ferrous Sulfate 325 mg PO BIDWM tablet 10/08/17 Insulin Regular, Human [Novolin R] See Protocol SC DAILY #1 ml 10/08/17 Magnesium Hydroxide [Milk Of Magnesia] 30 ml PO DAILY PRN udc 10/08/17 Multivitamin/Iron/Folic Acid [Certagen] 1 tab PO DAILY tablet 10/08/17 PHENobarbital [Phenobarbital] 90 mg PO DAILY tablet 10/08/17 Polyvinyl Alcohol [Artificial Tears] 1 drop EACHEYE Q4H btl 10/08/17 Potassium Chloride [Klor-Con 10] 20 meq PO DAILY tablet.sa 10/08/17 Sennosides [Senokot] 17.2 mg PO HS tablet 10/08/17
[2017-10-08 14:33] VITALS: BP 111/58
== END 2017-10-08 15:03 | DRG 378 ==
LOC: ER 16:49 → MS 21:31 → OBSVTOIN 21:31
PROVIDERS: ADMIT Nurse Practitioner; ATTEND Allergy & Immunology
PROC: 4A033R1 Measurement of Arterial Saturation, Peripheral, Percutaneous Approach (ICD-10-PCS; principal; 2017-10-01)
PROC: 30263N1 (ICD-10-PCS; 2017-10-02)
DX: K29.01 Acute gastritis with bleeding (principal); I27.82 Chronic pulmonary embolism; M79.81 Nontraumatic hematoma of soft tissue; R55 Syncope and collapse; C54.1 Malignant neoplasm of endometrium; D64.9 Anemia, unspecified; I10 Essential (primary) hypertension; E78.5 Hyperlipidemia, unspecified; E10.9 Type 1 diabetes mellitus without complications; F79 Unspecified intellectual disabilities; Z87.820 Personal history of traumatic brain injury; Z79.4 Long term (current) use of insulin; Z79.01 Long term (current) use of anticoagulants; Z23 Encounter for immunization
CPT/HCPCS: 36415; 74020; 74176; 80048; 80053; 81001; 82009; 82272; 82800; 83605; 84484; 85014; 85018; 85025; 85027; 85610; 85730; 86850; 86900; 87081; 87086; 90686; 93005; 99285; G0008; J2405; P9016

== ENCOUNTER 2017-12-14 12:43 | Emergency (ER) | payer MEDICARE, OTHER ==
--- NOTE | 2017-12-14 13:13 | ERNOTE ---
ER Female HPI Date of Service: 12/14/17 Stated Complaint: PRIVATE Presenting Symptoms: vaginal bleeding Time Seen by Provider: 12/14/17 12:57 Source: RN notes reviewed, detention records Exam Limitations: dementia, other - non-verbal Immunizations: IMMUNIZATION HX Immunizations Up to Date Yes History of Influenza Vaccine More Information Required Hx Pneumococcal Vaccination More Information Required Allergies/Adverse Reactions: Allergies No Known Allergies Allergy (Verified 08/29/17 10:41) Home Medications: HOME MEDICATIONS Atorvastatin Calcium [Lipitor] 40 mg PO HS 07/28/14 [Last Taken 09/30/17 19:00] Cyanocobalamin (Vitamin B-12) [B-12] 1,000 mcg PO DAILY 07/28/14 [Last Taken 05/12 07:00] Escitalopram Oxalate [Lexapro] 20 mg PO DAILY 07/28/14 [Last Taken 10/01/17 07: 00] Furosemide [Lasix] 20 mg PO DAILY 07/28/14 [Last Taken 10/01/17 07:00] Insulin Glargine,Hum.rec.anlog [Lantus] 75 units SQ HS 07/28/14 [Last Taken 04/11 19:00] Lisinopril [Zestril] 5 mg PO DAILY 07/28/14 [Last Taken 10/01/17 07:00] Phenytoin Sodium Extended [Dilantin] 200 mg PO BIDWM 07/28/14 [Last Taken 07:00] Sennosides [Senokot] 17.2 mg PO DAILY 07/28/14 [Last Taken 09/30/17 19:00] clonazePAM [Klonopin] 2 mg PO DAILY 07/28/14 [Last Taken 10/01/17 15:00] Loratadine 10 mg PO DAILY 08/27/17 [Last Taken 10/01/17 07:00] HYDROcodone/ACETAMINOPHEN [[place] 5-325] 1 tab PO Q4H PRN 10/01/17 [Last Taken 19:58] Megestrol Acetate [Megace] 40 mg PO BID 10/01/17 [Last Taken 10/01/17 07:00] Nystatin 1 each MC BID PRN 10/01/17 [Last Taken Unknown] Penicillin V Potassium 500 mg PO QID 10/01/17 [Last Taken 10/01/17 15:00] Acetaminophen 650 mg PO Q6H PRN 10/02/17 [Last Taken Unknown] Magnesium Hydroxide [Milk Of Magnesia] 30 ml PO DAILY PRN 10/02/17 [Last Taken Unknown] Ondansetron HCl [Zofran] 4 mg PO Q8H PRN 10/02/17 [Last Taken Unknown] PHENobarbital [Phenobarbital] 3 cap PO DAILY 10/02/17 [Last Taken Unknown] Polyvinyl Alcohol [Artificial Tears] 1 drop EACHEYE Q4H 10/02/17 [Last Taken Unknown] Docusate Sodium [Colace] 100 mg PO BID capsule 10/08/17 [Last Taken Unknown] Ferrous Sulfate 325 mg PO BIDWM tablet 10/08/17 [Last Taken Unknown] Insulin Regular, Human [Novolin R] See Protocol SC DAILY #1 ml 10/08/17 [Last Taken Unknown] Magnesium Hydroxide [Milk Of Magnesia] 30 ml PO DAILY PRN udc 10/08/17 [Last Taken Unknown] Multivitamin/Iron/Folic Acid [Certagen] 1 tab PO DAILY tablet 10/08/17 [Last Taken Unknown] PHENobarbital [Phenobarbital] 90 mg PO DAILY tablet 10/08/17 [Last Taken Unknown] Polyvinyl Alcohol [Artificial Tears] 1 drop EACHEYE Q4H btl 10/08/17 [Last Taken Unknown] Potassium Chloride [Klor-Con 10] 20 meq PO DAILY tablet.sa 10/08/17 [Last Taken Unknown] Sennosides [Senokot] 17.2 mg PO HS tablet 10/08/17 [Last Taken Unknown] - History of Present Illness Narrative: Pt. comes in from [place] and c/o vaginal bleeding while in the shower this morning. Pt. nurse states tath pt. was in the shower this morning at around 7 am and had appox 90ml of bright red blood per vagina. Pt. has a hx of this due to endometrial CA and is on a blood thinner for a saddle PE. Pt. nurse denies any SOB, cough, congestion, or fever. Nurse does states that pt. has been more pale recently. Timing: Present: intermittent Quality: Present: other - denies Activities at Onset: Present: other - shower Prior Abdominal Problems: Present: similar symptoms Modifying Factors - (Improves): Present: other - nothing Modifying Factors - (Worsens): Present: other - nthing Associated Symptoms: Absent: nausea, vomiting, abdominal pain, dysuria Prior Treatment: Present: recently seen, treated by physician, recently hospitalized Review of Systems - Narrative Narrative: ROS per NH report pt. non verbal - Review of Systems Constitutional: Present: no symptoms reported. Absent: fever, chills, weakness , fatigue, malaise EYE: Present: no symptoms reported ENT: Present: no symptoms reported Respiratory: Present: no symptoms reported. Absent: shortness of breath, cough , wheezing Cardiology: Present: no symptoms reported. Absent: chest pain, palpitations, edema Gastrointestinal/Abdominal: Present: no symptoms reported. Absent: nausea, vomiting, diarrhea, abdominal pain Genitourinary: Present: discharge - blood Musculoskeletal: Present: no symptoms reported. Absent: back pain, joint pain Skin: Present: change in color - pallor. Absent: rash Neurological: Present: pre-existing deficit All Other Systems: All systems neg except as marked - Patient's Past Medical History Patient History - Medical: Anxiety, Diabetes Type 1, Dementia, Depression, GERD , Obesity, Seizures, UTI'S Patient History - Cardiac/Respiratory: Hypertension, Hyperlipidemia, Pulmonary Embolism Patient History - Cancer: Endometrial Patient History - Surgical Procedures: Cholecystectomy, D & C, Other, Urology Patient History - Other: None - Family History Mother Family History - Medical: , History Unknown Father Family History - Medical: Family History - Cardiac/Respiratory: Coronary Heart Disease, Myocardial Infarction - Social History Living Situations: detention Psych History: Hx of Anxiety, Hx of Depression Smoking Status: Unknown if ever smoked Alcohol Use: none Drug Use: none - Immunizations Immunizations Up to Date: Yes Hx Pneumococcal Vaccination: More Information Required to Determine History of Influenza Vaccine: More Information Required to Determine Physical Exam - Physical Exam General Appearance: Present: wd/wn, alert, no apparent distress Head Exam: Present: normal inspection, no evidence of injury, no tenderness w palpation Eye Exam: Normal inspection: bilateral Ears, Nose, Throat: Present: normal ENT inspection, normal pharynx Neck: Present: normal inspection, nontender, supple, full range of motion. Absent: lymphadenopathy (R), lymphadenopathy (L) Respiratory: Present: no respiratory distress, no accessory muscle use, chest nontender, decreased breath sounds Cardiovascular/Chest: Present: regular rate, rhythm, no murmur, normal peripheral pulses Gastrointestinal/Abdominal: Present: tenderness - diffuse. Absent: abnormal bowel sounds, distended, hepatomegaly Back Exam: Present: normal inspection, normal range of motion, no CVA tenderness , no vertebral tenderness Extremity Exam: Present: normal inspection, non-tender, normal range of motion, no edema Neurological Exam: Present: alert, no motor/sensory deficits, other - Pt. non verbal and not able to stand Skin Exam: Present: cool/dry, pallor ED Progress - Date and Time Seen: Date and Time: 12/14/17 13:55 Pt. is has scant bleeding at this time and is not significantly overanticoagulated, and is not anemic. It is expected that pt. have some occasional uterine bleeding related to her endometrial and ovarian cancers. We will have NH increase pt. fluid intake and monitor for increased bleeding and have her follow up with her PCP for hopefully surgery to treat cnacer in the future as this is not possible at this time as pt. has a saddle PE. 12/14/17 14:07 - Results and Orders Patient's Lab Results:: I have reviewed the patient's lab results. - Vital Signs Patient's Vital Signs:: I have reviewed the patient's vital signs. Vital Signs: Vital Signs 12/14/17 12:50 Temperature 36.2 C L Pulse Rate 101 H Respiratory 19 Rate Blood Pressure 120/71 O2 Sat by Pulse 96 Oximetry - Progress/Reassessment Chief Complaint: Genitourinary Problem Progress:: Unchanged Departure Clinical Impression: Ovarian neoplasm, Endometrial neoplasm, Uterine hemorrhage - Departure Disposition: [facility] Condition: Good
[2017-12-14 13:27] LABS: Hematocrit 47.4 % (37.0-47.0); Hemoglobin 15.4 gm/dL (12.5-16.0); Mean Corpuscular Hemoglobin 33.5 pg (27-31); Mean Corpuscular Hgb Conc 32.5 g/dl (32-36); Mean Platelet Volume 8.9 fl (6.0-9.5); Neutrophil # 5.4 K/mm3 (1.3-6.0); Neutrophil % 66.9 % (42-75.0); Platelet Count 349 K/mm3 (150-450); Red Cell Distribution Width 14.7 % (11.5-14.0); White Blood Count 8.1 K/mm3 (4.0-10.5)
[2017-12-14 13:40] LABS: INR 1.4 INR (0.90-1.10); Partial Thrombolplastin Time 42.5 Seconds (24-32)
[2017-12-14 13:43] LABS: Albumin * 2.3 gm/dl (3.4-5.0); Anion Gap 13.1 mmol/L (6.8-13.8); BUN/Creatinine Ratio 10.2 (9.0-21.6); Bilirubin, Total 0.2 mg/dL (0.0-1.1); Ca. Corrected For Albumin 10.1 mg/dL (8.4-10.2); Calcium * 9.1 mg/dL (7.9-10.9); Potassium 4.1 mmol/L (3.4-4.6); Total Protein 6.8 gm/dL (6.2-8.2)
[2017-12-14 14:10] VITALS: BP 150/66
== END 2017-12-14 14:35 ==
LOC: ER 12:43
DX: D39.0 Neoplasm of uncertain behavior of uterus; N93.9 Abnormal uterine and vaginal bleeding, unspecified; D39.10 Neoplasm of uncertain behavior of unspecified ovary